=== PATIENT | male | born 1990 | race African-American/Black ===

== ENCOUNTER 2021-01-09 13:33 | Emergency (ER) | payer MEDICAID ==
[~2021-01-09] VITALS: Ht 182.9 cm; Wt 95.3 kg
[2021-01-09 13:48] VITALS: BP 127/79
[2021-01-09] MEDS ORDERED: NAPR-54 PO (14:35)
[2021-01-09] MEDS ORDERED: PROM118S5 PO (14:35)
[2021-01-09] MEDS ORDERED: BENZ-196 PO (14:52)
[2021-01-09 15:04] VITALS: BP 127/79
--- NOTE | 2021-01-09 15:04 | NUR ---
Patient discharged with v/s stable. Written and verbal after care instructions given and explained. Patient alert, oriented and verbalized understanding of instructions. Ambulatory with steady gait. All questions addressed prior to discharge. ID band removed. Patient advised to follow up with PMD. Rx of NAPROXEN, PROMETHAZINE-DM SYRUP given. Patient educated on indication of medication including possible reaction and side effects. Opportunity to ask questions provided and answered.
== END 2021-01-09 15:04 | disposition home or self-care (01) ==
LOC: MED 13:33
DX: J06.9 Acute upper respiratory infection, unspecified (principal); Z79.899 Other long term (current) drug therapy; Z79.1 Long term (current) use of non-steroidal anti-inflammatories (NSAID); Z88.0 Allergy status to penicillin
CPT/HCPCS: 71045; 99283